=== PATIENT | female | born 1960 | race Caucasian/White ===

== ENCOUNTER 2022-11-07 09:22 | Emergency (ER) | payer OTHER, SELFPAY ==
[2022-11-07 09:27] VITALS: BP 144/83; PULSE 67; RESP 14; TEMP 36.5; O2SAT 99
--- NOTE | 2022-11-07 10:36 | ED.GENADULT ---
HPI - General Adult General Chief complaint: Back Injury/Pain Stated complaint: Back pain and trouble breathing Time Seen by Provider: 11/07/22 09:45 Source: patient Mode of arrival: ambulatory Limitations: no limitations History of Present Illness HPI narrative: 62-year-old female coming in today complaining of acute upper back pain that started today when she reached down for the laundry hamper. She stated that she just reached down to touch the hamper and before she even touched it she felt an acute sharp pain in the left mid back that has not let up. She states that it is painful to take deep breaths and painful to twist at the waist. No recent illness. No fevers or chills. No nausea or vomiting. No coughing. She denies any history of lung disease. She does not smoke. She does take amlodipine and levothyroxine. Related Data Home Medications Medication Instructions Recorded Confirmed amlodipine 10 mg tablet 10 mg PO DAILY 11/07/22 11/07/22 levothyroxine 50 mcg tablet 50 mcg PO DAILY 11/07/22 11/07/22 Previous Rx's Medication Instructions Recorded cyclobenzaprine 10 mg tablet 10 mg PO TID PRN muscle spasm #10 11/07/22 tabs ketorolac 10 mg tablet 10 mg PO TID 5 days #15 tabs 11/07/22 Allergies Allergy/AdvReac Type Severity Reaction Status Date / Time No Known Drug Allergies Allergy Verified 11/07/22 09:30 Review of Systems Status of ROS: Reports: 10 or more systems reviewed and unremarkable except as noted in History and below [facility] Social History Smoking Status: Never smoker Do you use any of these nicotine containing products: None Second hand tobacco smoke exposure: No How often do you have a drink containing alcohol: never AUDIT-C Alcohol total score: 0 Non-prescribed substance use: denies use Exam Narrative: Exam Narrative: Well-nourished well-developed patient in no acute distress. Alert and oriented. Answers questions appropriately. Mood and affect are appropriate. Thoughts are goal oriented and rational. No tangential or magical thinking noted. Patient speaks in full sentences without needing to catch her breath. Sitting up straight in bed. HEENT: Normocephalic atraumatic. Pupils are equally round reactive to light. Extraocular muscles are intact. Conjunctivae are moist without any icterus noted. Moist mucous membranes. Cardiovascular: Heart is regular rate and rhythm S1 and S2 are present without any murmurs. Lungs: Clear to auscultation bilaterally no wheezes rhonchi or rales are appreciated. Patient is able to take deep breaths but states that it is uncomfortable in the left mid back. Abdomen: Soft and nontender nondistended. Skin: Well perfused without any obvious rashes. Back: Has normal appearance. She has no tenderness to palpation of the paraspinal musculature. She has a harsh palpation of the cervical thoracic or lumbar spine. She has discomfort when she has to reach across the body with the left arm. Const: Vital Signs, click to edit/add: Vital Signs - 24 hr 11/07/22 09:27 Temperature 97.7 F Pulse Rate [Right Pulse Oximeter] 67 Respiratory Rate 14 Blood Pressure [Ri ght Upper Arm] 144/83 H Pulse Oximetry 99 Oxygen Delivery Me thod Room Air Course Vital Signs Vital signs: Initial Vital Signs Temperature 97.7 F 11/07/22 09:27 Temperature Source Temporal Artery Scan 11/07/22 09:27 Pulse Rate 67 11/07/22 09:27 Pulse Rhythm Regular 11/07/22 09:27 Pulse Strength 3+ Normal 11/07/22 09:27 Respiratory Rate 14 11/07/22 09:27 Blood Pressure 144/83 H 11/07/22 09:27 Blood Pressure Mean 103 11/07/22 09:27 Blood Pressure Position Sitting 11/07/22 09:27 Pulse Oximetry 99 11/07/22 09:27 Oxygen Delivery Method Room Air 11/07/22 09:27 Vital Signs Temperature 97.7 F 11/07/22 09:27 Pulse Rate 67 11/07/22 09:27 Respiratory Rate 14 11/07/22 09:27 Blood Pressure 144/83 H 11/07/22 09:27 Pulse Oximetry 99 11/07/22 09:27 Oxygen Delivery Method Room Air 11/07/22 09:27 Temperature 97.7 F 11/07/22 09:27 Pulse Rate 67 11/07/22 09:27 Respiratory Rate 14 11/07/22 09:27 Blood Pressure 144/83 H 11/07/22 09:27 Pulse Oximetry 99 11/07/22 09:27 Oxygen Delivery Method Room Air 11/07/22 09:27 Medical Decision Making MDM Narrative Medical decision making narrative: 62-year-old female with a probable acute muscle spasm. We discussed symptomatic treatment. Patient is quite concerned because her has MS and he presented with acute back pain. She is requesting ?a bone scan? today. We discussed that this is not necessary given that this is her 1st episode of back pain. We discussed following up with her primary care provider if she is not getting better and certainly if this is a recurring situation. Patient had no other questions. Discharge Plan Discharge Clinical Impression: Thoracic back pain Patient Disposition: Home, Self-Care Condition: Stable Additional Instructions: Activity as tolerated, do recommend gentle stretching multiple times per day. Okay to use Tylenol as needed for discomfort, and you will be given a prescription for Toradol today which is a strong [id number] can take this as needed with food. You will also be given a prescription for Flexeril which is a muscle relaxer, also use as needed. Okay to use heat to your back as needed, do not apply heat directly to skin. Follow-up with your primary care provider if you are not improving over the next week. Prescriptions: New cyclobenzaprine 10 mg tablet 10 mg PO TID PRN (Reason: muscle spasm) Qty: 10 0RF ketorolac 10 mg tablet 10 mg PO TID 5 Days Qty: 15 0RF No Action amlodipine 10 mg tablet 10 mg PO DAILY levothyroxine 50 mcg tablet 50 mcg PO DAILY Follow Up/Referrals: Jessica Ortiz MD [Primary Care Provider] - Stand Alone Forms: [employer] Info Instructions
== END 2022-11-07 11:02 | disposition home or self-care (01) ==
PROVIDERS: Emergency Provider Family Medicine; PCP Family Medicine
DX: M54.6 Pain in thoracic spine (principal)
CPT/HCPCS: 99283